=== PATIENT | male | born 1985 | race Caucasian/White ===

== ENCOUNTER 2017-08-15 10:46 | Emergency (ER) | payer OTHER ==
[2017-08-15 10:59] VITALS: BP 149/77; PULSE 83; RESP 18; TEMP 97.9
[2017-08-15] MEDS ORDERED: DEXAMETHASONE SOD PHOSPHATE 10 MG/ML 1 ML VIAL IM STA (11:24)
--- NOTE | 2017-08-15 11:27 | ED ---
General Adult HPI - General Chief complaint: Skin/Abscess/Foreign Body Stated complaint: insect bite Time Seen by Provider: 08/15/17 10:59 Source: patient, RN notes reviewed, old records reviewed Mode of arrival: ambulatory Limitations: no limitations - History of Present Illness Initial comments: This is a 31-year-old male to the ER for evaluation possible but with possible spider bite. Patient states he feels fine he has no real complaints family was concerned over the size and swelling his right upper extremity. He states his symptoms are much better today than they were yesterday. Patient states his symptoms happen yesterday he denies any other issues. Mild erythema to the right upper extremity but no significant distress. Again patient denies fever. No significant history of ALLERGIC history - Related Data Home Medications Medication Instructions Recorded Confirmed Cetirizine HCl [Zyrtec] 10 mg PO DAILY 08/15/17 08/15/17 Previous Rx's Medication Instructions Recorded Naproxen [Naprosyn] 500 mg PO Q12HR PRN #30 tab 08/15/17 Allergies Allergy/AdvReac Type Severity Reaction Status Date / Time No Known Allergies Allergy Verified 08/15/17 10:54 Review of Systems ROS Statement: Those systems with pertinent positive or pertinent negative responses have been documented in the HPI. ROS Other: All systems not noted in ROS Statement are negative. Past Medical History Past Medical History: No Reported History History of Any Multi-Drug Resistant Organisms: None Reported Additional Past Surgical History / Comment(s): septoplasty Past Psychological History: No Psychological Hx Reported Smoking Status: Never smoker Past Alcohol Use History: Occasional Past Drug Use History: None Reported General Exam - General Exam Comments Initial Comments: Mild edema and erythema right upper extremity, no evidence of infection, no significant point of injection Limitations: no limitations General appearance: alert, in no apparent distress Head exam: Present: atraumatic, normocephalic, normal inspection Eye exam: Present: normal appearance, PERRL, EOMI. Absent: scleral icterus, conjunctival injection, periorbital swelling ENT exam: Present: normal exam, mucous membranes moist Neck exam: Present: normal inspection. Absent: tenderness, meningismus, lymphadenopathy Respiratory exam: Present: normal lung sounds bilaterally. Absent: respiratory distress, wheezes, rales, rhonchi, stridor Cardiovascular Exam: Present: regular rate, normal rhythm, normal heart sounds. Absent: systolic murmur, diastolic murmur, rubs, gallop, clicks GI/Abdominal exam: Present: soft, normal bowel sounds. Absent: distended, tenderness, guarding, rebound, rigid Extremities exam: Present: normal inspection, full ROM, normal capillary refill. Absent: tenderness, pedal edema, joint swelling, calf tenderness Back exam: Present: normal inspection Neurological exam: Present: alert, oriented X3, CN II-XII intact Psychiatric exam: Present: normal affect, normal mood Skin exam: Present: warm, dry, intact, normal color. Absent: rash Course Vital Signs 08/15/17 10:55 Temperature 97.9 F Pulse Rate 83 Respiratory 18 Rate Blood Pressure 149/77 O2 Sat by Pulse 95 Oximetry Medical Decision Making - Medical Decision Making 31 male the ER for evaluation, unknown insect bite right upper extremity, mild swelling no signs of infection. Patient will be discharged on anti- inflammatories Disposition Clinical Impression: Insect bite of right arm Disposition: HOME SELF-CARE Condition: Poor Instructions: Insect Bite or Sting (ED) Prescriptions: Naproxen [Naprosyn] 500 mg PO Q12HR PRN #30 tab PRN Reason: Pain Is patient prescribed a controlled substance at d/c from ED?: No Referrals: None,Stated [Primary Care Provider] - 1-2 days
== END 2017-08-15 11:42 | disposition home or self-care (01) ==
LOC: EC 10:46
DX: S40.861A Insect bite (nonvenomous) of right upper arm, initial encounter (principal); Z79.899 Other long term (current) drug therapy; W57.XXXA Bitten or stung by nonvenomous insect and other nonvenomous arthropods, initial encounter; Y93.53 Activity, golf
CPT/HCPCS: 99282; 96372; J1100

== ENCOUNTER 2019-10-06 12:42 | Emergency (ER) | payer BC, OTHER ==
[2019-10-06 12:53] VITALS: RESP 18
[2019-10-06] MEDS ORDERED: MECLIZINE 25 MG TAB PO STA (13:25)
--- NOTE | 2019-10-06 14:01 | CT ---
EXAMINATION TYPE: CT brain wo con DATE OF EXAM: 10/06/2019 COMPARISON: None HISTORY: Dizziness and nausea. CT DLP: 1094.4 mGycm. Automated Exposure Control for Dose Reduction was Utilized. TECHNIQUE: CT scan of the head is performed without contrast. FINDINGS: There is no acute intracranial hemorrhage, mass effect, or midline shift identified. The ventricles and sulci are within normal limits in size. Changes of chronic sinusitis are noted.. IMPRESSION: 1. No acute intracranial hemorrhage, mass effect, or midline shift is seen. 2. Changes of chronic sinusitis.
[2019-10-06 14:48] LABS: ALT 39 U/L (4-49); AST 41 U/L (17-59); African American GFR (CKD) >90 (>60 ml/min/1.73 sqM); Albumin 4.9 g/dL (3.5-5.0); Alkaline Phosphatase 71 U/L (38-126); Anion Gap 10 mmol/L; Basophils # (A) 0.1 k/uL (0-0.2); Basophils % (A) 1 %; Blood Urea Nitrogen 14 mg/dL (9-20); Calcium 9.9 mg/dL (8.4-10.2); Carbon Dioxide 23 mmol/L (22-30); Chloride 104 mmol/L (98-107); Eosinophils # (A) 0.1 k/uL (0-0.7); Eosinophils % (A) 1 %; Glucose 95 mg/dL (74-99); HCT 44.8 % (39.0-53.0); HGB 15.5 gm/dL (13.0-17.5); Lymphocytes # (A) 2.1 k/uL (1.0-4.8); Lymphocytes % (A) 23 %; MCH 28.6 pg (25.0-35.0); MCHC 34.5 g/dL (31.0-37.0); MCV 83.1 fL (80.0-100.0); Mean Platelet Volume 7.3; Monocytes # (A) 0.6 k/uL (0-1.0); Monocytes % (A) 6 %; Neutrophils # (A) 6.2 k/uL (1.3-7.7); Neutrophils % (A) 67 %; Non-African American GFR(CKD) >90 (>60 ml/min/1.73 sqM); Platelet Count 277 k/uL (150-450); Potassium 4.2 mmol/L (3.5-5.1); RDW 12.3 % (11.5-15.5); Sodium 137 mmol/L (137-145); Total Bilirubin 0.9 mg/dL (0.2-1.3); WBC 9.2 k/uL (3.8-10.6)
--- NOTE | 2019-10-06 14:53 | ED ---
General Adult HPI - General Chief complaint: Dizziness Stated complaint: Nausea Time Seen by Provider: 10/06/19 12:45 Source: patient, RN notes reviewed, old records reviewed Mode of arrival: ambulatory Limitations: no limitations - History of Present Illness Initial comments: This is a 34-year-old male who presents to the emergency department complaining of a spinning and it started 2 days ago in the morning. Patient states if he moves said it's worst patient states he is often sits down and check this I specifically feels considerably better. Patient has a slight anterior headache. Patient also complains of some nausea that has been quite significant since this began. Patient denies any chest pain difficulty breathing shortness of breath. His any fever chills or cough per patient denies any palpitations. Patient denies any other symptoms at this time. - Related Data Previous Rx's Medication Instructions Recorded Meclizine [Antivert] 25 mg PO TID #20 tab 10/06/19 Allergies Allergy/AdvReac Type Severity Reaction Status Date / Time No Known Allergies Allergy Verified 10/06/19 14:35 Review of Systems ROS Statement: Those systems with pertinent positive or pertinent negative responses have been documented in the HPI. ROS Other: All systems not noted in ROS Statement are negative. Past Medical History Past Medical History: No Reported History History of Any Multi-Drug Resistant Organisms: None Reported Additional Past Surgical History / Comment(s): septoplasty Past Psychological History: No Psychological Hx Reported Smoking Status: Never smoker Past Alcohol Use History: Occasional, Rare Past Drug Use History: None Reported General Exam - General Exam Comments Initial Comments: GENERAL: Patient is well-developed and well-nourished. Patient is nontoxic and well- hydrated and is in no acute distress. ENT: Neck is soft and supple. No significant lymphadenopathy is noted. Oropharynx is clear. Moist mucous membranes. Neck has full range of motion without eliciting any pain. EYES: The sclera were anicteric and conjunctiva were pink and moist. Extraocular movements were intact and pupils were equal round and reactive to light. Eyelids were unremarkable. PULMONARY: Unlabored respirations. Good breath sounds bilaterally. No audible rales rhonchi or wheezing was noted. CARDIOVASCULAR: There is a regular rate and rhythm without any murmurs gallops or rubs. ABDOMEN: Soft and nontender with normal bowel sounds. No palpable organomegaly was noted. There is no palpable pulsatile mass. SKIN: Skin is clear with no lesions or rashes and otherwise unremarkable. NEUROLOGIC: Patient is alert and oriented x3. Cranial nerves II through XII are grossly intact. Motor and sensory are also intact. Normal speech, volume and content. Symmetrical smile. Cerebellar exam grossly intact. MUSCULOSKELETAL: Normal extremities with adequate strength and full range of motion. No lower extremity swelling or edema. No calf tenderness. LYMPHATICS: No significant lymphadenopathy is noted PSYCHIATRIC: Normal psychiatric evaluation. Limitations: no limitations Course Vital Signs 10/06/19 10/06/19 12:50 13:21 Temperature 98.1 F Pulse Rate 74 70 Respiratory 18 18 Rate Blood Pressure 141/94 140/96 O2 Sat by Pulse 95 97 Oximetry Medical Decision Making - Medical Decision Making CT of the brain shows no acute abnormality EKG shows normal sinus rhythm at 64 bpm [place] interval 264 QRS of 100 a QT interval 426 QTC is 439. Patient's EKG lindsey ws no ST segment elevation or depression. Patient received Antivert and emergency department was feeling better. - Lab Data Result diagrams: 10/06/19 14:16 10/06/19 14:16 Lab Results 10/06/19 10/06/19 Range/Units 14:16 14:16 WBC 9.2 (3.8-10.6) k/uL RBC 5.40 (4.30-5.90) m/uL Hgb 15.5 (13.0-17.5) gm/dL Hct 44.8 (39.0-53.0) % MCV 83.1 (80.0-100.0) fL MCH 28.6 (25.0-35.0) pg MCHC 34.5 (31.0-37.0) g/dL RDW 12.3 (11.5-15.5) % Plt Count 277 (150-450) k/uL Neutrophils % 67 % Lymphocytes % 23 % Monocytes % 6 % Eosinophils % 1 % Basophils % 1 % Neutrophils # 6.2 (1.3-7.7) k/uL Lymphocytes # 2.1 (1.0-4.8) k/uL Monocytes # 0.6 (0-1.0) k/uL Eosinophils # 0.1 (0-0.7) k/uL Basophils # 0.1 (0-0.2) k/uL Sodium 137 (137-145) mmol/L Potassium 4.2 (3.5-5.1) mmol/L Chloride 104 (98-107) mmol/L Carbon Dioxide 23 (22-30) mmol/L Anion Gap 10 mmol/L BUN 14 (9-20) mg/dL Creatinine 0.91 (0.66-1.25) mg/dL Est GFR (CKD-EPI)AfAm >90 (>60 ml/min/1.73 sqM) Est GFR (CKD-EPI)NonAf >90 (>60 ml/min/1.73 sqM) Glucose 95 (74-99) mg/dL Calcium 9.9 (8.4-10.2) mg/dL Total Bilirubin 0.9 (0.2-1.3) mg/dL AST 41 (17-59) U/L ALT 39 (4-49) U/L Alkaline Phosphatase 71 (38-126) U/L Total Protein 8.0 (6.3-8.2) g/dL Albumin 4.9 (3.5-5.0) g/dL Disposition Clinical Impression: Vertigo Disposition: HOME SELF-CARE Condition: Good Instructions (If sedation given, give patient instructions): Vertigo (ED) Prescriptions: Meclizine [Antivert] 25 mg PO TID #20 tab Is patient prescribed a controlled substance at d/c from ED?: No Referrals: None,Stated [Primary Care Provider] - 1-2 days Time of Disposition: 14:53
[2019-10-06 14:55] VITALS: BP 143/87; PULSE 77; TEMP 98
== END 2019-10-06 14:55 | disposition home or self-care (01) ==
LOC: EC 12:42
DX: R42 Dizziness and giddiness (principal); R51 Headache; R11.0 Nausea
CPT/HCPCS: 36415; 70450; 80053; 85025; 93005; 99285

== ENCOUNTER 2020-05-15 10:21 | Day surgery (SDC) | payer BC ==
[2020-05-14 10:32] VITALS: BMI 32.5
[~2020-05-15 10:21] MED LIST: LACTATED RINGERS 1,000 ML IV SCH; LIDOCAINE 1% (10MG/ML) FOR IV START INTRADERMA PRN
[2020-05-15 11:02] VITALS: TEMP 97.3
[2020-05-15] MEDS ORDERED: PROPOFOL 10 MG/ML 20 ML VIAL IV ONE (11:54)
[2020-05-15 12:27] VITALS: PULSE 75
--- NOTE | 2020-05-15 12:36 | P.PCN ---
Date of Procedure: 05/15/20 Description of Procedure: BRIEF HISTORY: Patient is a 34-year-old male presenting for outpatient colonoscopy for evaluation of change in bowel habits. Patient was seen in the clinic reporting symptoms of loose frequent bowel movements, he reported difficulty passing bowel movements and episodes of diarrhea with alternating constipation. Patient also saw bright red blood per rectum occasionally. PROCEDURE PERFORMED: Colonoscopy with biopsy. PREOPERATIVE DIAGNOSIS: Change in bowel habits, altered bowel function, blood per rectum. ESTIMATED BLOOD LOSS: Minimal. IV sedation per Anesthesia. PROCEDURE: After informed consent was obtained, the patient, was brought into the endoscopy unit. IV sedation was administered by Anesthesia under continuous monitoring. Digital rectal examination was normal. Initially the Olympus CF-190 flexible video colonoscope was then inserted in the rectum, gradually advanced into the cecum without any difficulty. Careful examination was performed as the scope was gradually being withdrawn. Ileocecal valve and the appendiceal orifice were visualized and appeared normal. Prep was excellent. Mucosa of the cecum, ascending colon, transverse colon, descending colon, sigmoid colon, and rectum appeared normal, with random biopsies taken of the right and left colon in the setting of altered bowel function as well as biopsies of a normal-appearing terminal ileum. Retroflexion was performed in the rectum and no lesions were seen, low-grade internal hemorrhoids. The patient tolerated the procedure well. IMPRESSION: Normal-appearing colon from rectum to cecum and normal-appearing terminal ileum with random biopsies taken of the right colon, left colon and terminal ileum in the setting of altered bowel function. Internal hemorrhoids. RECOMMENDATIONS: Findings of this examination were discussed with the patient and his family. Okay to resume diet. Okay to resume medications. Await pathology from biopsies. Follow up in the GI clinic as scheduled.
[2020-05-15 13:01] VITALS: BP 146/80; RESP 18
== END 2020-05-15 13:12 | disposition home or self-care (01) ==
LOC: ORWHC2ENDO 10:21
PROVIDERS: ATTEND Internal Medicine
DX: K64.8 Other hemorrhoids (principal); K59.00 Constipation, unspecified; R19.7 Diarrhea, unspecified; K62.5 Hemorrhage of anus and rectum; Z98.890 Other specified postprocedural states; F17.200 Nicotine dependence, unspecified, uncomplicated; R42 Dizziness and giddiness; E66.9 Obesity, unspecified; Z68.31 Body mass index [BMI] 31.0-31.9, adult
CPT/HCPCS: 88305; 45380; J2704

== ENCOUNTER 2020-05-31 16:09 | Emergency (ER) | payer OTHER, BC ==
[2020-05-31 16:25] VITALS: BP 145/82; PULSE 80; RESP 18; TEMP 98
[2020-05-31] MEDS ORDERED: ACET/COD 300 MG/30 MG STARTER PACK 6 TAB BTL PO STA (16:50)
[2020-05-31] MEDS ORDERED: KETOROLAC 15 MG/ML 1 ML VIAL IM STA (16:51)
--- NOTE | 2020-05-31 17:10 | XR ---
PROCEDURE: XR finger LT - 3V DATE AND TIME: 05/31/2020 5:04 PM CLINICAL INDICATION: PHH; Cut tip of finger with saw TECHNIQUE: Department protocol COMPARISON: None FINDINGS: Soft tissues: Distal third finger soft tissue laceration changes appreciated, but no radiopaque forei gn bodies and no soft tissue emphysema. Osseous structures: The bones and joints are negative. IMPRESSION: Soft tissue laceration changes.
[2020-05-31] MEDS ORDERED: GELATIN SPONGE,ABSORB (SMALL) 1 EACH SPONGE TOPICAL STA (17:11)
--- NOTE | 2020-05-31 17:13 | ED ---
Upper Extremity HPI - General Chief Complaint: Extremity Injury, Upper Stated Complaint: Finger laceration, finger tip off Time Seen by Provider: 05/31/20 16:41 Source: patient Mode of arrival: ambulatory Limitations: no limitations - History of Present Illness Initial Comments: 34-year-old male patient presents to the emergency department today for eval uation of injury to the left middle finger. Patient states he was using a circular saw when he slipped with the wood and cut his finger. He was wearing a glove. He did cleanse the area and applied a quick clotting gauze. Patient was able to get the bleeding under control. Presented here for further evaluation. Denies any other injuries. Reports full range of motion of the finger. Denies any use of anticoagulants or antiplatelet medications. States his last tetanus was 2-3 years ago. - Related Data Home Medications Medication Instructions Recorded Confirmed Multivitamins, Thera [Multivitamin 1 tab PO DAILY 05/14/20 05/14/20 (formulary)] Allergies Allergy/AdvReac Type Severity Reaction Status Date / Time No Known Allergies Allergy Verified 05/31/20 16:22 Review of Systems ROS Statement: Those systems with pertinent positive or pertinent negative responses have been documented in the HPI. ROS Other: All systems not noted in ROS Statement are negative. Past Medical History Past Medical History: No Reported History Additional Past Medical History / Comment(s): alternating constipation /diarrhea, History of Any Multi-Drug Resistant Organisms: MRSA Date of last positivie culture/infection: 2001 MDRO Source:: knee Additional Past Surgical History / Comment(s): septoplasty, EGD Past Anesthesia/Blood Transfusion Reactions: No Reported Reaction Past Psychological History: No Psychological Hx Reported Smoking Status: Former smoker Past Alcohol Use History: Rare Past Drug Use History: Marijuana General Exam Limitations: no limitations General appearance: alert, in no apparent distress Respiratory exam: Present: normal lung sounds bilaterally. Absent: respiratory distress, wheezes, rales, rhonchi, stridor Cardiovascular Exam: Present: regular rate, normal rhythm, normal heart sounds. Absent: systolic murmur, diastolic murmur, rubs, gallop, clicks Extremities exam: Present: full ROM, normal capillary refill, other (There is skin avulsion to the distal tip of the left middle finger. No active bleeding. Minimal involvement of the nail. No exposed bone. It is otherwise pink, warm, dry. Cap refill less than 3 seconds. Radial pulses 2+.). Absent: tenderness, pedal edema, joint swelling, calf tenderness Neurological exam: Present: alert, oriented X3, CN II-XII intact Psychiatric exam: Present: normal affect, normal mood Skin exam: Present: warm, dry, intact, normal color. Absent: rash Course Vital Signs 05/31/20 16:22 Temperature 98.0 F Pulse Rate 80 Respiratory 18 Rate Blood Pressure 145/82 O2 Sat by Pulse 100 Oximetry Medical Decision Making - Medical Decision Making 34-year-old male patient presented to the emergency department today for evaluation of skin avulsion injury to the left middle finger. X-ray was obtained and was negative for any bony involvement. Wound was cleansed and Gelfoam dressing applied. We did discuss wound care and signs or symptoms of infection. He is instructed to follow-up the primary care physician for recheck in 1-2 days. Return parameters were discussed in detail. He verbalizes understanding and agrees with this plan. My attending is Dr. Gonsalez. - Radiology Data Radiology results: report reviewed, image reviewed 3 views of the left finger obtained. Report was reviewed in its entirety. Impression by Dr. Diallo Roberto shows soft tissue laceration changes. Disposition Clinical Impression: Avulsion of skin of finger Disposition: HOME SELF-CARE Condition: Good Instructions (If sedation given, give patient instructions): Skin Avulsion (ED) Additional Instructions: Keep dressing in place for the next 2 days. Keep wound clean and dry. Follow- up with the primary care physician for recheck in 1-2 days. Return for any new, worsening, or concerning symptoms. Is patient prescribed a controlled substance at d/c from ED?: No Referrals: [facility],Clinic [Primary Care Provider] - 1-2 days Time of Disposition: 17:20
== END 2020-05-31 17:37 | disposition home or self-care (01) ==
LOC: EC 16:09
DX: S61.313A Laceration without foreign body of left middle finger with damage to nail, initial encounter (principal); F12.90 Cannabis use, unspecified, uncomplicated; Z87.891 Personal history of nicotine dependence; W01.0XXA Fall on same level from slipping, tripping and stumbling without subsequent striking against object, initial encounter
CPT/HCPCS: 73140; 99283; 96372; J1885

== ENCOUNTER → 2023-03-24 | Outpatient (CLI) | payer BC, OTHER ==
--- NOTE | 2023-03-24 14:32 | P.PAINPG ---
PQRS Measure Charge Sheet Comment: HISTORY OF PRESENT ILLNESS: A 37 yr old male as a referral from [facility] presents today w severe and chronic LBP x 6 mo secondary to DDD, spondylosis and facet arthropathy without myelopathy for evaluation. Pt states pain level is provoked at 10/10 in intensity, constant, localized in the lumbar spine, predominantly axial, achy in character w occasional shooting pain towards L & R of midline. Pain is provoked by driving. Pain is alleviated by PT for 6 wks x 3 rounds in [id number], chiropractic treatments bi weekly x 2 mo which he is currently in, physician guided home exercises 5 times weekly since Sep 2022, alternating heat & ice, use of a TENS unit, medications, Lidocaine topical, repositioning and rest. Oswestry axial pain score at 23. PMH: OA PSH: Septoplasty, EGD, Colonoscopy (2020) SH: Former tobacco use, Rare ETOH use, Cannabis use FH: Non contributory All: See list Meds: See list REVIEW OF ORGAN SYSTEMS: CONSTITUTIONAL: No fevers or chills. No recent weight loss. NEUROLOGICAL: + numbness and tingling along the distal extremities. No seizure disorders or headaches. MUSCULOSKELETAL: + pain PSYCHIATRIC: Denies current depression or suicidal thoughts. Physical Examinations : Constitutional : Cooperative , not in acute distress . Neurologic : Cranial nerve II to XII intact. No focal neurological deficits. Psychiatric : alert & oriented x 3. Matching mood & appropriate affect. Judgment & insight intact. Musculoskeletal : Cervical Spine Motor strength in the deltoid and biceps: Normal right side. Normal Left side Motor strength biceps and the wrist extensors: Normal right side . Normal left side Motor strength in the triceps muscle: Normal right side. Normal left side Deep tendon reflexes: Normal at the biceps. Normal at Brachioradialis. Normal at triceps Vertebral body tenderness to deep palpation over Cervical facet loading test: positive bilaterally Spurling test: positive bilaterally Neck distraction test: positive bilaterally Anusha sign: positive bilaterally Lumbar spine Motor strength lower extremities ,thigh and legs 5/5 Right side , 5/5 Left side Deep tendon reflexes : Normal Knee Jerk. Normal Ankle Jerk Vertebral body tenderness over L4 Lentz Test positive Lumbar facet Loading Test: positive Right / positive Left Range of motion of the lumbar spine Flexion 30 degrees, extension 10 degrees Straight Leg Raise test: Left/ Right positive at <40 degrees Chilo test: positive right / positive left. Severe tenderness over the Sacroiliac joint on the Right / Left sides Gaenslen test: positive bilaterally Seated flexion test: positive bilaterally. Sacral spine : Severe tenderness over the Sacroiliac joint: right side / left side Range of motion: Flexion of the lumbar spine <60 degrees Range of motion: Extension of the lumbar spine <20 degrees Gaenslen's Test positive Chilo test: positive right side / left side Thigh Thrust Test Sacral Thrust Test Imaging: MRI noncontrast of the lumbar spine from 10/07/2022 reviewed Assessment/ Plan : Lumbar DDD Recommendation of R TFESI L4-L5 #1. May need a series of injections for optimal pain relief. Risks, benefits of procedure discussed and patient verbalized understanding. Admits to anti- coagulant use or medical history of diabetes. Protocol for discontinuation/ continuation of medications anusha procedure discussed. All questions answered. I have spent greater than 30 minutes on patient care today. Dr Willoughby was available by phone for the evaluation of this patient. The time was used to review the medical records including relevant urine studies and Prescription history (MAPs), review of the available imaging, evaluation and examination of the patient, coordination of care with the medical staff and if applicable referring physicians, as well as creation of the medical record PQRS Narrative: Smoking Status Never smoker Home Medications: Ambulatory Orders Multivitamins, Thera [Multivitamin (formulary)] 1 tab PO DAILY 05/14/20 Controlled Substance Measures - Controlled Substance Measures Is patient prescribed a controlled substance at discharge?: No
[2023-03-24 15:02] VITALS: BP 148/76; PULSE 101; RESP 15; TEMP 98.6
== END ==
LOC: PNWHC3 14:02
PROVIDERS: ATTEND Specialist
DX: M51.16 Intervertebral disc disorders with radiculopathy, lumbar region (principal); M47.26 Other spondylosis with radiculopathy, lumbar region; M19.90 Unspecified osteoarthritis, unspecified site; Z87.891 Personal history of nicotine dependence
CPT/HCPCS: 99211

== ENCOUNTER 2023-04-09 12:18 | Day surgery (SDC) | payer OTHER ==
[~2023-04-09 12:18] MED LIST changes: -LIDOCAINE 1% (10MG/ML) FOR IV START INTRADERMA PRN
[2023-04-09 12:44] VITALS: TEMP 98.1
[2023-04-09] MEDS ORDERED: methylPREDNISolone ACETATE 80 MG/ML 1 ML VIAL ONE (13:24)
[2023-04-09] MEDS ORDERED: IOPAMIDOL M200 10 ML VIAL ONE (13:24)
--- NOTE | 2023-04-09 13:32 | P.PCN ---
Date of Procedure: 04/09/23 Procedure(s) Performed: PREOPERATIVE DIAGNOSIS: 1-Lumbar radiculopathy . 2-lumbar degenerative disc disease. POSTOPERATIVE DIAGNOSIS: 1-lumbar radiculopathy. 2-lumbar degenerative disc disease. PROCEDURE 1. Transforaminal epidural steroid injection under fluoroscopic guidance at right L4-5 level. (Fluoroscopy images stored on file in the radiology Department ) 2. Lumbar epidurogram . ANESTHESIA: Local with 1% lidocaine 3 ml. EBL: Minimal PROCEDURE INDICATION: The patient with low back pain and radiculopathy symptoms unresponsive to conservative treatment. PROCEDURE DESCRIPTION / TECHNIQUE: The patient was seen and identified in the preoperative area. Risks, benefits, complications, and alternatives were discussed with the patient. The patient agreed to proceed with the procedure and signed the consent. IV was started, and vital signs were stable. Patient was taken to the OR and time out was completed. The patient was placed in the prone position on procedure table and a pillow was placed under the abdomen to reduce lumbar lordosis. The lumbosacral area was prepped and draped in the usual sterile fashion. Critical pause was taken. Vital signs were closely monitored during the procedure. Using oblique fluoroscopy, the chin of the ``Darío dog at Right L4-5 level was identified, and the skin and deeper tissues just below was localized with 1% lidocaine. Subsequently, a 22-gauge 3.5-inch spinal needle was advanced under a tunneled view fluoroscopic guidance just underneath the chin of the ``Darío dog at the right L4-5 Under lateral fluoroscopy, the needle was then advanced to the posterior border of the interforaminal space. After negative aspiration of CSF and blood and with no paresthesias, 1 mL Isovue 200 contrast dye was injected excellent epidurogram and outlining of the nerve root Subsequently, 3 mL of block solution containing 80 mg Depo-Medrol and 2 mL of 0.9% normal saline PF was injected. Needle was removed. At the end of the procedure, skin was cleansed, and bandages were applied. COMPLICATIONS:none DISPOSITION / PLANS: The patient was placed in a supine position and transferred to the recovery area in a stable condition for observation. There was no evidence of lower extremity motor or sensory deficit after the procedure. Julio nieto was discharged from the recovery room after meeting discharge criteria. Home discharge instructions were given to the patient by the staff. The patient was reexamined prior to discharge.
[2023-04-09 13:47] VITALS: PULSE 79; RESP 18
[2023-04-09 14:20] VITALS: BP 125/71
--- NOTE | 2023-04-10 11:07 | FL ---
EXAMINATION TYPE: FL guided pain mgmt statistic DATE OF EXAM: 04/09/2023 FLUOROSCOPY Fluoroscopy time of 3 seconds was used during transforaminal lumbar epidural steroid injection. 1 im age/s document/s the procedure. DAP=.[id number] mGycm2.
== END 2023-04-09 14:06 | disposition home or self-care (01) ==
LOC: ORPAIN 12:18
PROVIDERS: ATTEND Specialist
DX: M51.16 Intervertebral disc disorders with radiculopathy, lumbar region (principal)
CPT/HCPCS: 64483; J1040; Q9966

== ENCOUNTER → 2023-04-30 | Outpatient (CLI) | payer OTHER ==
--- NOTE | 2023-04-30 14:01 | P.PAINPG ---
PQRS Measure Charge Sheet Comment: HISTORY OF PRESENT ILLNESS: A 37 yr old male presents today w severe and chronic LBP x 6 mo secondary to DDD, spondylosis and facet arthropathy without myelopathy for evaluation s/p R TFESI L4-L5 #1. Pt states he experienced 80% pain relief x 3 wks s/p procedure. Pt states pain level is provoked at 6 /10 in intensity, constant, localized in the lumbar spine, predominantly axial, achy in character w occasional shooting pain towards L & R of midline. Pain is provoked by driving. Pain is alleviated by PT for 6 wks x 3 rounds in [id number], chiropractic treatments bi weekly x 2 mo which he is currently in, physician guided home exercises 5 times weekly since Sep 2022, alternating heat & ice, use of a TENS unit, medications, Lidocaine topical, repositioning and rest. Oswestry axial pain score at 22. Interventional procedures include R TFESI L4-L5 x1 Medications include Lidocaine, Cannabis use REVIEW OF ORGAN SYSTEMS: CONSTITUTIONAL: No fevers or chills. No recent weight loss. NEUROLOGICAL: + numbness and tingling along the distal extremities. No seizure disorders or headaches. MUSCULOSKELETAL: + pain PSYCHIATRIC: Denies current depression or suicidal thoughts. Physical Examinations : Constitutional : Cooperative , not in acute distress . Neurologic : Cranial nerve II to XII intact. No focal neurological deficits. Psychiatric : alert & oriented x 3. Matching mood & appropriate affect. Judgment & insight intact. Musculoskeletal : Cervical Spine Motor strength in the deltoid and biceps: Normal right side. Normal Left side Motor strength biceps and the wrist extensors: Normal right side . Normal left side Motor strength in the triceps muscle: Normal right side. Normal left side Deep tendon reflexes: Normal at the biceps. Normal at Brachioradialis. Normal at triceps Vertebral body tenderness to deep palpation over Cervical facet loading test: positive bilaterally Spurling test: positive bilaterally Neck distraction test: positive bilaterally Anusha sign: positive bilaterally Lumbar spine Motor strength lower extremities ,thigh and legs 5/5 Right side , 5/5 Left side Deep tendon reflexes : Normal Knee Jerk. Normal Ankle Jerk Vertebral body tenderness over L4 Lentz Test positive Lumbar facet Loading Test: positive Right / positive Left Range of motion of the lumbar spine Flexion 30 degrees, extension 10 degrees Straight Leg Raise test: Left/ Right positive at <40 degrees Chilo test: positive right / positive left. Severe tenderness over the Sacroiliac joint on the Right / Left sides Gaenslen test: positive bilaterally Seated flexion test: positive bilater ally. Sacral spine : Severe tenderness over the Sacroiliac joint: right side / left side Range of motion: Flexion of the lumbar spine <60 degrees Range of motion: Extension of the lumbar spine <20 degrees Gaenslen's Test positive Chilo test: positive right side / left side Thigh Thrust Test Sacral Thrust Test Imaging: MRI noncontrast of the lumbar spine from 10/07/2022 reviewed Assessment/ Plan : Lumbar DDD Recommendation of R paramedian ANDRES L4-L5 #2. May need a series of injections for optimal pain relief. Risks, benefits of procedure discussed and patient verbalized understanding. Admits to anti- coagulant use or medical history of diabetes. Protocol for discontinuation/ continuation of medications anusha procedure discussed. All questions answered. I have spent greater than 30 minutes on patient care today. Dr Willoughby was available by phone for the evaluation of this patient. The time was used to review the medical records including relevant urine studies and Prescription history (MAPs), review of the available imaging, evaluation and examination of the patient, coordination of care with the medical staff and if applicable referring physicians, as well as creation of the medical record PQRS Narrative: Smoking Status Never smoker Hx Alcohol Use (MH) No Home Medications: Ambulatory Orders Multivitamins, Thera [Multivitamin (formulary)] 1 tab PO DAILY 05/14/20 Controlled Substance Measures - Controlled Substance Measures Is patient prescribed a controlled substance at discharge?: No
[2023-04-30 14:40] VITALS: BP 148/85; PULSE 65; RESP 15; TEMP 97.5
== END ==
LOC: PNWHC3 13:43
PROVIDERS: ATTEND Specialist
DX: M51.36 Other intervertebral disc degeneration, lumbar region (principal)
CPT/HCPCS: 99211

== ENCOUNTER 2023-05-11 20:04 | Emergency (ER) | payer OTHER ==
[2023-05-11] MEDS: FLUORESCEIN STRIPS 1 MG STRIP RIGHT EYE ONE (20:12)
[2023-05-11] MEDS: PROPARACAINE 0.5% OPHTH DROPS 15 ML BTL RIGHT EYE STA (20:12)
--- NOTE | 2023-05-11 21:04 | ED ---
Eye Problem HPI - General Chief complaint: Eye Problems Stated complaint: debris in eye Time Seen by Provider: 05/11/23 20:08 Source: patient Mode of arrival: ambulatory Limitations: no limitations - History of Present Illness Initial comments: 37-year-old male present with chief complaint of right eye pain. 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 This happened at around 10:30 AM. He has been having watering and runny nose. He does have some redness and irritation surrounding the eye due to constant irrit ation. He does not wear contact lenses. His tetanus shot is up-to-date. He does not note any major vision changes outside of some minor blurriness. He did try flushing the eye out earlier today but is having continued irritation. - Related Data Home Medications Medication Instructions Recorded Confirmed Multivitamins, Thera [Multivitamin 1 tab PO QAM 05/14/20 05/08/23 (formulary)] Allergies Allergy/AdvReac Type Severity Reaction Status Date / Time No Known Allergies Allergy Verified 05/11/23 20:08 Review of Systems ROS Statement: Those systems with pertinent positive or pertinent negative responses have been documented in the HPI. ROS Other: All systems not noted in ROS Statement are negative. Past Medical History Past Medical History: No Reported History, GERD/Reflux, Hearing Disorder / Deafness Additional Past Medical History / Comment(s): alternating constipation /diarrhea, back pain, tinnitis, [facility] bilat. History of Any Multi-Drug Resistant Organisms: MRSA Date of last positivie culture/infection: 2001 MDRO Source:: Rt knee Additional Past Surgical History / Comment(s): septoplasty, EGD Past Anesthesia/Blood Transfusion Reactions: No Reported Reaction Past Psychological History: No Psychological Hx Reported Smoking Status: Former smoker Past Alcohol Use History: None Reported Past Drug Use History: None Reported - Past Family History Father Family Medical History: Cancer Additional Family Medical History / Comment(s): leukemia General Exam Limitations: no limitations General appearance: alert, in no apparent distress Head exam: Present: atraumatic, normocephalic Expanded Eyelids: Erythema: Right Pupils: Regular, Round: Bilateral, Reactive: Bilateral Sclera/Conjunctival: Injection: Right Neck exam: Present: normal inspection Respiratory exam: Absent: respiratory distress Cardiovascular Exam: Present: regular rate Neurological exam: Present: alert, oriented X3 Psychiatric exam: Present: normal affect, normal mood Skin exam: Present: warm, dry Course Vital Signs 05/11/23 20:05 Temperature 98.8 F Pulse Rate 79 Respiratory 20 Rate Blood Pressure 153/110 O2 Sat by Pulse 97 Oximetry Medical Decision Making - Medical Decision Making Was pt. sent in by a medical professional or institution (NAEL Pearce, CASHIER RECEPTIONIST, urgent care, hospital, or longterm...) When possible be specific @ -No Did you speak to anyone other than the patient for history (EMS, parent, family, police, friend...)? What history was obtained from this source @ -No Did you review nursing and triage notes (agree or disagree)? Why? @ -I reviewed and agree with nursing and triage notes Were old charts reviewed (outside hosp., previous admission, EMS record, old EKG, old radiological studies, urgent care reports/EKG's, longterm records)? Report findings @ -No old charts were reviewed Differential Diagnosis (chest pain, altered mental status, abdominal pain women, abdominal pain men, vaginal bleeding, weakness, fever, dyspnea, syncope, headache, dizziness, GI bleed, back pain, seizure, CVA, palpatations, mental health, musculoskeletal)? @ -Differential includes foreign body, corneal abrasion, corneal ulcer, laceration, conjunctivitis, this is not an all-inclusive list EKG interpreted by me (3pts min.). @ -As above X-rays interpreted by me (1pt min.). @ -None done CT interpreted by me (1pt min.). @ -None done U/S interpreted by me (1pt. min.). @ -None done What testing was considered but not performed or refused? (CT, X-rays, U/S, labs)? Why? @ -None What meds were considered but not given or refused? Why? @ -None Did you discuss the management of the patient with other professionals (professionals i.e. NAEL Pearce, CASHIER RECEPTIONIST, lab, RT, psych nurse, social service coordinator, supervisor mold shop, teacher, booking officer, casework supervisor)? Give summary @ -No Was smoking cessation discussed for >3mins.? @ -No Was critical care preformed (if so, how long)? @ -No Were there social determinants of health that impacted care today? How? (Homelessness, low income, unemployed, alcoholism, drug addiction, transportation, low edu. Level, literacy, decrease access to med. care, [facility], rehab)? @ -No Was there de-escalation of care discussed even if they declined (Discuss DNR or withdrawal of care, Hospice)? DNR status @ -No What co-morbidities impacted this encounter? (DM, HTN, Smoking, COPD, CAD, Cancer, CVA, ARF, Chemo, Hep., AIDS, mental health diagnosis, sleep apnea, morbid obesity)? @ -None Was patient admitted / discharged? Hospital course, mention meds given and route, prescriptions, significant lab abnormalities, going to OR and other pertinent info. @ -37-year-old male presenting with chief complaint of injury to the right eye. He had wooden debris blood in the eye earlier today. His tetanus shot is up-to-date. He is anesthetized with proparacaine eyedrops and Albino lenses applied, 1 L normal saline is used to flush out the eye. Fluorescein staining and Dye lamp examination shows evidence of corneal abrasion. Slit-lamp was used which shows no evidence of retained foreign body. Patient is educated on today's findings. He is provided with sulfacetamide eyedrops and ketorolac eyedrops. Instructed to follow-up with ophthalmology. Discharged home. Follow-up with PCP. Report back to ER with any new or worsening symptoms. Discussed return parameters and answered all questions. Patient conveyed verbal understanding and agreed to the plan. I discussed this case in detail with my attending Dr. Vallecillo Undiagnosed new problem with uncertain prognosis? @ -No Drug Therapy requiring intensive monitoring for toxicity (Heparin, Nitro, Insulin, Cardizem)? @ -No Were any procedures done? @ -No Diagnosis/symptom? @ -Corneal abrasion Acute, or Chronic, or Acute on Chronic? @ -Acute Uncomplicated (without systemic symptoms) or Complicated (systemic symptoms)? @ -Uncomplicated Side effects of treatment? @ -No Exacerbation, Progression, or Severe Exacerbation? @ -No Poses a threat to life or bodily function? How? (Chest pain, [place], [place], pneumonia, PE, COPD, DKA, ARF, appy, cholecystitis, CVA, Diverticulitis, Homicidal, Suicidal, threat to staff... and all critical care pts) @ -Unlikely Disposition Clinical Impression: Corneal abrasion Disposition: HOME SELF-CARE Condition: Good Instructions (If sedation given, give patient instructions): Corneal Abrasion (ED) Additional Instructions: Follow-up with PCP and neighborhood planner. Apply 2 sulfacetamide eyedrops to the affected eye 4 times daily for 5 days to prevent infection You may apply 1 ketorolac eyedrop to the affected eye up to 4 times daily for pain Is patient prescribed a controlled substance at d/c from ED?: No Referrals: [facility],Clinic [Primary Care Provider] - 1-2 days Jordan Rai MD [STAFF PHYSICIAN] - 1-2 days Time of Disposition: 21:04
[2023-05-11] MEDS: SULFACETAMIDE SOD 10% OPHTH DROPS 15 ML BTL RIGHT EYE STA (21:16)
[2023-05-11] MEDS: KETOROLAC 0.5% OPHTH DROPS 5 ML BTL RIGHT EYE STA (21:16)
[2023-05-11 21:40] VITALS: BP 150/93; PULSE 85; RESP 18; TEMP 98.5
== END 2023-05-11 21:20 | disposition home or self-care (01) ==
LOC: EC 20:04
DX: S05.01XA Injury of conjunctiva and corneal abrasion without foreign body, right eye, initial encounter (principal); Z87.891 Personal history of nicotine dependence; X58.XXXA Exposure to other specified factors, initial encounter
CPT/HCPCS: 99283

== ENCOUNTER 2023-05-12 12:11 | Day surgery (SDC) | payer OTHER ==
[2023-05-08 13:43] VITALS: BMI 32.1
[2023-05-12 13:05] VITALS: RESP 16; TEMP 97.8
[2023-05-12] MEDS ORDERED: methylPREDNISolone ACETATE 40 MG/ML 1 ML VIAL ONE (13:16)
[2023-05-12] MEDS ORDERED: IOPAMIDOL M200 10 ML VIAL ONE (13:16)
--- NOTE | 2023-05-12 13:20 | P.PCN ---
Date of Procedure: 05/12/23 Description of Procedure: PREOPERATIVE DIAGNOSIS: lumbar radiculopathy POSTOPERATIVE DIAGNOSIS: Lumbar radiculopathy PROCEDURE 1. Lumbar epidural steroid injection under fluoroscopic guidance at the L4-L5 level. 2. Lumbar epidurogram. Imaging: Fluoroscopy was used, images where saved to the medical record ANESTHESIA: Patient re-evaluated immediately prior to sedation Local only EBL: Minimal PROCEDURE INDICATION: The patient with low back pain and radiculitis symptoms unresponsive to conservative treatment. Fluoroscopy was used to optimize visualization of the needle placement and to maximize safety. PROCEDURE DESCRIPTION / TECHNIQUE: The patient was seen and identified in the preoperative area. Risks, benefits, complications including but not limited to infections, bleeding, allergic reaction to medications, nerve damage and incomplete pain relief, as well as alternatives to the procedure were discussed with the patient. The patient agreed to proceed with the procedure and signed the consent. IV was started if indicated above, and vital signs were stable. Patient was taken to the OR and time out was completed. The patient was placed in the prone position on procedure table and a pillow was placed under the abdomen to reduce lumbar lordosis. The lumbosacral area was prepped and draped in the usual sterile fashion. Vitals were closely monitored during the procedure. Using anterior-posterior fluoroscopy, the L4-L5 interlaminar space was identified and the skin over this site was marked and then infiltrated with 1% lidocaine subcutaneously. Subsequently, a 20-gauge Tuohy epidural needle was inserted and advanced toward the epidural space using the Loss of resistance technique and guided by AP and lateral fluoroscopy. The correct needle position in the epidural space was verified with the injection of 1 mL of Omnipaque 180 contrast to observe an acceptable epidurogram, after negative aspiration for blood and CSF and in the absence of paresthesias. Again after negative aspiration, a 3 ml mixture containing 40mg of depomedrol and 2 ml of preservative free Normal Saline was injected and a washout of epidurogram was seen. Needle was withdrawn intact, skin was cleansed, and bandages were applied. COMPLICATIONS: None DISPOSITION / PLANS: The patient was placed in a supine position and transferred to the recovery area in a stable condition for observation. There was no evidence of lower extremity motor or sensory deficit after the procedure. Noel bethea was discharged from the recovery room after meeting discharge criteria. Home discharge instructions were given to the patient by the staff. The patient was reexamined prior to discharge. The patient will follow up as directed.
--- NOTE | 2023-05-12 13:52 | FL ---
Fluoroscopy INDICATION: Pain Fluoroscopy time: 2.5 seconds. Total dose area product (DAP) in uGy*m?, mGy*cm? (or similar): 0.23819 Images obtained: 2. IMPRESSION: 1. Documentation of fluoroscopy.
[2023-05-12 14:17] VITALS: BP 135/76; PULSE 68
== END 2023-05-12 13:47 | disposition home or self-care (01) ==
LOC: ORPAIN 12:11
PROVIDERS: ATTEND Hospitalist
DX: M54.16 Radiculopathy, lumbar region (principal)
CPT/HCPCS: 62323; J1030; Q9966

== ENCOUNTER → 2023-12-03 | Outpatient (CLI) | payer OTHER ==
[2023-12-03 09:43] VITALS: BP 139/91; PULSE 53; RESP 16; TEMP 97.1
--- NOTE | 2023-12-03 13:56 | P.PAINPG ---
PQRS Measure Charge Sheet Comment: HISTORY OF PRESENT ILLNESS: A 38 yr old male presents today w severe and chronic LBP x 6 mo secondary to DDD, spondylosis and facet arthropathy without myelopathy for evaluation s/p ANDRES L4-L5 #2. Pt states he experienced 50% pain relief x 1 mo s/p procedure. Pt states pain level is provoked at 6 /10 in intensity, constant, localized in the lumbar spine, predominantly axial, achy in character w occasional shooting pain towards L & R of midline. Pain is provoked by driving. Pain is alleviated by PT for 6 wks x 3 rounds in [id number], chiropractic treatments bi weekly x 2 mo which he is currently in, physician guided home exercises 5 times weekly since Sep 2022, alternating heat & ice, use of a TENS unit, medications, Lidocaine topical, repositioning and rest. Interventional procedures include R TFESI L4-L5 x1, ANDRES L4-L5 x1 (Apr 2023) Medications include Aleve, Lidocaine, Cannabis use REVIEW OF ORGAN SYSTEMS: CONSTITUTIONAL: No fevers or chills. No recent weight loss. NEUROLOGICAL: + numbness and tingling along the distal extremities. No seizure disorders or headaches. MUSCULOSKELETAL: + pain PSYCHIATRIC: Denies current depression or suicidal thoughts. Physical Examinations : Constitutional : Cooperative , not in acute distress . Neurologic : Cranial nerve II to XII intact. No focal neurological deficits. Psychiatric : alert & oriented x 3. Matching mood & appropriate affect. Judgment & insight intact. Musculoskeletal : Cervical Spine Motor strength in the deltoid and biceps: Normal right side. Normal Left side Motor strength biceps and the wrist extensors: Normal right side . Normal left side Motor strength in the triceps muscle: Normal right side. Normal left side Deep tendon reflexes: Normal at the biceps. Normal at Brachioradialis. Normal at triceps Vertebral body tenderness to deep palpation over Cervical facet loading test: positive bilaterally Spurling test: positive bilaterally Neck distraction test: positive bilaterally Anusha sign: positive bilaterally Lumbar spine Motor strength lower extremities ,thigh and legs 5/5 Right side , 5/5 Left side Deep tendon reflexes : Normal Knee Jerk. Normal Ankle Jerk Vertebral body tenderness over L4 Lentz Test positive Lumbar facet Loading Test: positive Right / positive Left L4-L5/ L5-S1 Range of motion of the lumbar spine Flexion 30 degrees, extension 10 degrees Straight Leg Raise test: Left/ Right positive at <40 degrees Chilo test: positive right / positive left. Severe tenderness over the Sacroiliac joint on the Right / Left sides Gaenslen test: positive bilaterally Seated flexion test: positive bilaterally. Sacral spine : Severe tenderness over the Sacroiliac joint: right side / left side Range of motion: Flexion of the lumbar spine <60 degrees Range of motion: Extension of the lumbar spine <20 degrees Gaenslen's Test positive Chilo test: positive right side / left side Thigh Thrust Test Sacral Thrust Test Imaging: MRI noncontrast of the lumbar spine from 10/07/2022 reviewed Assessment/ Plan : Lumbar radiculopathy Recommendation of DEANDRA DOWELL L4-L5/ L5-S1 #1. May need a series of injections for optimal pain relief. Risks, benefits of procedure discussed and patient verbalized understanding. Admits to anti- coagulant use or medical history of diabetes. Protocol for discontinuation/ continuation of medications anusha procedure discussed. Minimal anesthesia including Fentanyl and Versed if clinically indicated. All questions answered. I have spent greater than 30 minutes on patient care today. Dr Willoughby was a vailable by phone for the evaluation of this patient. The time was used to review the medical records including relevant urine studies and Prescription history (MAPs), review of the available imaging, evaluation and examination of the patient, coordination of care with the medical staff and if applicable referring physicians, as well as creation of the medical record PQRS Narrative: Smoking Status Never smoker Hx Alcohol Use (MH) No Home Medications: Ambulatory Orders Multivitamins, Thera [Multivitamin (formulary)] 1 tab PO QAM 05/14/20 Controlled Substance Measures - Controlled Substance Measures Is patient prescribed a controlled substance at discharge?: No
== END ==
LOC: PNWHC3 08:05
PROVIDERS: ATTEND Specialist
DX: M54.16 Radiculopathy, lumbar region (principal)
CPT/HCPCS: 99211

== ENCOUNTER 2023-12-17 12:18 | Day surgery (SDC) | payer OTHER ==
[2023-12-16 12:17] VITALS: BMI 32.1
[2023-12-17 13:48] VITALS: TEMP 97.6
[2023-12-17] MEDS: LACTATED RINGERS 1,000 ML IV SCH (13:50)
[2023-12-17] MEDS: LIDOCAINE 1% (10MG/ML) FOR IV START INTRADERMA STA (13:50)
[2023-12-17] MEDS: IV FLUID CONTINUATION 1,000 ML IV ONE (13:50)
[2023-12-17] MEDS ORDERED: fentaNYL (PF) 50 MCG/ML 2 ML AMP ONE (14:20)
[2023-12-17] MEDS ORDERED: MIDAZOLAM 2 MG/2 ML VIAL ONE (14:20)
[2023-12-17] MEDS ORDERED: ROPIVACAINE 5MG/ML 20ML VIAL ONE (14:20)
--- NOTE | 2023-12-17 14:33 | P.PCN ---
Date of Procedure: 12/17/23 Procedure(s) Performed: PREOPERATIVE DIAGNOSIS : 1- Lumbar spondylosis with Facet Arthropathy without myelopathy . 2- Lumber degenerative disc disease POSTOPERATIVE DIAGNOSIS: 1- Lumbar spondylosis with Facet Arthropathy without myelopathy . 2- Lumber degenerative disc disease PROCEDURE: Diagnostic bilateral L3 , L4 , and L5 medial branch block under fluoroscopy guidance(fluoroscopy images available in the radiology Department ) ( To target the facet joint between Bilateral L4-5 , and L5- S1 )#1st ANESTHESIA:moderate sedation with intravenous Versed 2 mg and Fentanyl 50 mcg.(Sedation start at 14:20, end at 14:29) EBL: Minimal COMPLICATION: None PROCEDURE INDICATION: Chronic low back pain secondary to Facet arthropathy unresponsive to conservative treatment. PROCEDURE DESCRIPTION: the patient was seen and identified in the preop holding area , risks and benefits and possible complications of the procedure and alternative were discussed with the patient, and the patient agreed to proceed with the procedure and signed the consent and vital signs monitored during the procedure and fluoroscopy was used to maximize the benefit and accuracy of the needle placement, and sedation was given to decrease patient anxiety, patient was taken to the procedure room and placed in prone position vital signs monitored in the back prepped with chlorhexidine X3 then under strict sterile technique using a right oblique fluoroscopy ,the junction of the transverse process and the superior articulating process of the right L3 , L4 , and L5 vertebra which corresponding to the fluoroscopy image of the eye of the Darío dog on the block side for the medial branches and subsequently , after local infiltration of skin and subcu tissuies with Ropivacaine 0.5 % , one mL at each level ,then 22-gauge Quincke-type needles , 3 needle was used , each one of them placed at the junction of the base of the transverse process and the superior articular process at the appropriate level, and the needle was advanced until the periosteum contacted, needle placement confirmed with AP oblique and lateral view and after appropriate needle placement confirmed, and after negative aspiration for heme and CSF and there was no paresthesia 1-1/2 mL of ropivacaine 0. 5% used, then half mL injected at each level after negative aspiration the needle subsequently removed and the same procedure repeated for the left side at left side at L3 , L4 and L5 levels. At the end of the procedure and the needles removed and a bandage applied after the skin was cleaned the cleaning solution patient taken to recovery room in stable condition and monitors in the recovery room for 20-30 minutes and discharged home in stable condition after discharge criteria met and patient will follow up with the pain clinic in 2-4 weeks
[2023-12-17] MEDS: IV FLUID CONTINUATION 700 ML IV ONE (14:35)
[2023-12-17 15:02] VITALS: BP 113/64; PULSE 57; RESP 18
--- NOTE | 2023-12-17 15:11 | FL ---
EXAMINATION TYPE: FL guided pain mgmt statistic DATE OF EXAM: 12/17/2023 FLUOROSCOPY Sudhakar facets lumbar 3 level, 6 sec fluoro time .[id number] Robles 4 images submitted [facility], , 12/17/2023 3:09 PM
== END 2023-12-17 15:14 | disposition home or self-care (01) ==
LOC: ORPAIN 12:18
PROVIDERS: ATTEND Specialist
DX: M47.816 Spondylosis without myelopathy or radiculopathy, lumbar region (principal)
CPT/HCPCS: 64493; 64494; J2250; J3010; J2795; 99152

== ENCOUNTER → 2023-12-28 | Outpatient (CLI) | payer OTHER ==
[2023-12-28 08:15] VITALS: BP 133/86; PULSE 68; RESP 16
--- NOTE | 2023-12-28 15:44 | P.PAINPG ---
PQRS Measure Charge Sheet Comment: HISTORY OF PRESENT ILLNESS: A 38 yr old male presents today w severe and chronic LBP x 6 mo secondary to radiculopathy, spondylosis and facet arthropathy without myelopathy for evaluation s/p BL MBB L4-L5/ L5-S1 #1. Pt states he experienced 40 % pain relief x hrs s/p procedure. Pt states pain level is provoked at 7 /10 in intensity, constant, localized in the lumbar spine, predominantly axial, achy in character w occasional shooting pain towards L & R of midline. Pain is provoked by driving. Pain is alleviated by PT for 6 wks x 3 rounds in [id number], chiropractic treatments bi weekly x 2 mo which he is currently in, physician guided home exercises 5 times weekly since Sep 2022, alternating heat & ice, use of a TENS unit, medications, Lidocaine topical, repositioning and rest. Interventional procedures include R TFESI L4-L5 x1, ANDRES L4-L5 x1 (Apr 2023), BL MBB L3-L5 x1 Medications include Aleve, Lidocaine, Cannabis use REVIEW OF ORGAN SYSTEMS: CONSTITUTIONAL: No fevers or chills. No recent weight loss. NEUROLOGICAL: + numbness and tingling along the distal extremities. No seizure disorders or headaches. MUSCULOSKELETAL: + pain PSYCHIATRIC: Denies current depression or suicidal thoughts. Physical Examinations : Constitutional : Cooperative , not in acute distress . Neurologic : Cranial nerve II to XII intact. No focal neurological deficits. Psychiatric : alert & oriented x 3. Matching mood & appropriate affect. Judgment & insight intact. Musculoskeletal : Cervical Spine Motor strength in the deltoid and biceps: Normal right side. Normal Left side Motor strength biceps and the wrist extensors: Normal right side . Normal left side Motor strength in the triceps muscle: Normal right side. Normal left side Deep tendon reflexes: Normal at the biceps. Normal at Brachioradialis. Normal at triceps Vertebral body tenderness to deep palpation over Cervical facet loading test: positive bilaterally Spurling test: positive bilaterally Neck distraction test: positive bilaterally Anusha sign: positive bilaterally Lumbar spine +R Hip Trendelenburg Motor strength lower extremities ,thigh and legs 5/5 Right side , 5/5 Left side Deep tendon reflexes : Normal Knee Jerk. Normal Ankle Jerk Vertebral body tenderness over L4 Lentz Test positive Lumbar facet Loading Test: positive Right / positive Left L4-L5/ L5-S1 Range of motion of the lumbar spine Flexion 30 degrees, extension 10 degrees Straight Leg Raise test: Left/ Right positive at <40 degrees Chilo test: positive right / positive left. Severe tenderness over the Sacroiliac joint on the Right / Left sides Gaenslen test: positive bilaterally Seated flexion test: positive bilaterally. Sacral spine : Severe tenderness over the Sacroiliac joint: right side / left side Range of motion: Flexion of the lumbar spine <60 degrees Range of motion: Extension of the lumbar spine <20 degrees Gaenslen's Test positive Chilo test: positive right side / left side Thigh Thrust Test Sacral Thrust Test Imaging: MRI noncontrast of the lumbar spine from 10/07/2022 reviewed Imaging of R hip Assessment/ Plan : Lumbar radiculopathy, R Hip DJD Will follow up w Dr Barboza to explore additional R hip treatment options. All questions answered. I have spent greater than 30 minutes on patient care today. Dr Willoughby was available by phone for the evaluation of this patient. The time was used to review the medical records including relevant urine studies and Prescription history (MAPs), review of the available imaging, evaluation and examination of the patient, coordination of care with the medical staff and if applicable referring physicians, as well as creation of the medical record - Pain Location Bilateral Lower Back Non-Pharmacological Interventions: Chiropractic Treatment, Physical Therapy, Position/Reposition, Sitting, TENS Unit Pharmacological Interventions: Block, Epidural, PRN Medication, Topical Medication PQRS Narrative: Smoking Status Never smoker Hx Alcohol Use (MH) No Home Medications: Ambulatory Orders Multivitamins, Thera [Multivitamin (formulary)] 1 tab PO QAM 05/14/20 Controlled Substance Measures - Controlled Substance Measures Is patient prescribed a controlled substance at discharge?: No
== END ==
LOC: PNWHC3 07:47
PROVIDERS: ATTEND Specialist
DX: M47.26 Other spondylosis with radiculopathy, lumbar region (principal); M16.11 Unilateral primary osteoarthritis, right hip
CPT/HCPCS: 99211